=== PATIENT | female | born 1960 | race Caucasian/White ===

== ENCOUNTER 2025-03-03 15:16 | Outpatient (AMB) | payer MEDICARE, MEDICAID, SELFPAY ==
--- OUTSIDE RECORDS SUMMARY | 2025-02-28 14:42 | XMS_ITS | Encounter Summary ---
Author Organization [facility] Address [address] [place] [address] Care Team Providers Care Group Rooms Coordinator Name Role Phone James Negrete MD Primary Care Provider [phone] Reason for Visit * Reason Comments Hand Pain Red warm Encounter Details Date Type Department Care Team (Late st Contact Info) Description 02/28/2025 2:42 PM EST - 02/28/2025 5:04 PM EST Emergency [facility] Emergency [address] [place] [id number] Maciej Castro MD [address] [address] Cellulitis of left upper extremity (Primary Dx); Closed nondisplaced fracture of distal phalanx of left ring finger, initial encounter; Eczema of both hands Discharge Disposition: Home or Self Care Social History Tobacco Use Types Packs/Day Years Used Date Smoking Tobacco: Every Day Cigarettes Smokeless Tobacco: Never Tobacco Cessation:Ready to Q uit: Not Asked; Counseling Given: Not Answered Alcohol Use Standard Drinks/Week Comments No 0 (1 standard drink = 0.6 oz pur e alcohol) Housing Instability Answer Date Recorde d Are you worried that in the next 2 months you may not have stable housing? Patient declined 12/22/2024 Food Access & Nutrition Answer Date Rec orded Do you have access to a vari ety of food including fruits and vegetables? Patient declined 12/22/2024 Access to Healthcare Answer Date Record ed Within the last 3 months, angelito marrero many times did you visit the emergency department for your medical care? 0 12/22/2024 Health Literacy Answer Date Recorded How often do you need to hav e someone help you when you read instructions, pamphlets, or other written material from your doctor or pharmacy? Never 12/22/2024 Caregiver: How often do you need to have someone help you when you read instructions, pamphlets, or other written material from your doctor or pharmacy? Not on file 12/22/2024 Financial Risk Answer Date Recorded How hard is it for you to pa y for the very basics like food, housing, medical care, and air conditioning / heating? Patient declined 12/22/2024 Transportation Answer Date Recorded Has the lack of transportati on kept you from meetings, work, or from getting things needed for daily living? No Has the lack of transportati on kept you from medical appointments or from getting medications? No 12/22/2024 Social Isolation Answer Date Recorded How often do you feel lonely or isolated from th ose around you? Never 12/22/2024 Food Risk Answer Date Recorded Within the past 12 months we worried whether our food would run out before we got money to buy more. Patient declined 025 Within the past 12 months th e food we bought just didn't last and we didn't have money to get more. Patient declined 10/2024 Comments Unknown Sex and Gender Information Value Date Recorded Sex Assigned at Not on file Legal Sex Female 2:36 AM EST Gender Identity Not on file Sexual Orientation Not on file documented as of this encounter Last Filed Vital Signs Vital Sign Reading Time Taken Comments Blood Pressure 168/92 02/28/2025 2:36 PM EST Pulse 90 02/28/2025 2:36 PM EST Temperature 36.6 C (97.9 F) 02/28/2025 2:36 PM EST Respiratory Rate 20 02/28/2025 2:36 PM EST Oxygen Saturation 98% 02/28/2025 2:36 PM EST Inhaled Oxygen Concentration - - Weight 45.4 kg (100 lb) 02/28/2025 2:36 PM EST Height 149.9 cm (4' 11 ) 02/28/2025 2:36 PM EST Body Mass Index 20.2 02/28/2025 2:36 PM EST documented in this encounter Functional Status * Are you deaf or do you have serious difficulty hearing? Answer Date of Assessment Author No 10/12/2024 4:34 PM EDT Treva Mooney RN * Are you blind or do you have serious difficulty seeing, even when wearing glasses? Answer Date of Assessment Author No 10/12/2024 4:34 PM EDT Treva Mooney RN * Do you have serious difficulty walking or climbing stairs? Answer Date of Assessment Author No 10/12/2024 4:34 PM EDT Treva Mooney RN * Do you have serious difficulty dressing or bathing? Answer Date of Assessment Author No 10/12/2024 4:34 PM EDT Treva Mooney RN * Because of a physical, mental, or emotional condition, do you have serious difficulty doing errandsalone such as visiting the doctor? Answer Date of Assessment Author No 10/12/2024 4:34 PM EDT Treva Mooney RN * Calculated C-SSRS Risk Score (Lifetime/Recent) Answer Date of Assessment Author No Risk Indicated 02/28/2025 2:35 PM EST Gabrielle Monge RN * [place] Suicide Severity Rating Scale (Screener/Recent Self-Report) Question Answer Date of Assessment Author 1. Wish to be (Past 1 Month) No 02/28/2025 2:35 PM Antoine Fagan RN 2. Non-Specific Active Suici ilsa Thoughts (Past 1 Month) No 02/28/2025 2:35 PM Carlos Fagan RN 6. Suicidal Behavior (Lifetime) No 2:35 PM Gabrielle Fagan RN documented as of this encounter Mental Status * Because of a physical, mental, or emotional condition, do you have serious difficulty concentrating, remembering, or making decisions? (5 years old or older) Answer Entry Date Author No 10/12/2024 4:34 PM Treva Capps RN documented in this encounter Discharge Instructions * Discharge Instructions* Maciej Castro MD - 02/28/2025 4:37 PM EST Use an emollient type cream for your hand to improve the eczema * Attachments The following attachments cannot be sent through Care Everywhere. * Eczema (Beninese) * Splint or Immobilizer Use (Beninese) * Cellulitis (Beninese) documented in this encounter Medications at Time of Discharge albuterol HFA (Ventolin HFA) 90 mcg/actuation inhaler Inhale 2 puffs by mouth every 4 (four) hours if needed for wheezing or shortness of breath. 8 g 2 12/23/2024 6 carisoprodoL (SOMA) 350 mg tablet Take 1 tablet by mouth daily for 28 days. 09/14/2020 CHOLECALCIFEROL, VITAMIN D3, ORAL Take by mouth daily. doxycycline (VIBRAMYCIN) 100 mg capsule Take 1 capsule (100 mg total) by mouth 2 (two) times a day for 7 days. Take with at least 8 ounces (large glass) of water, do not lie down for 30 minutes after. Administer 2 hours before or after multivitamins, antacids, or other products containing polyvalent cations (i.e., calcium, iron, magnesium, selenium, zinc). 14 each 02/28/2025 5 fluticasone (VERAMYST) 27.5 mcg/actuation nasal spray Administer 1-2 sprays into each nostril 1 (one) time each day. 10 g 5 07/09/2024 6 loratadine (CLARITIN) 10 mg tablet TAKE 1 TABLET (10 MG TOTAL) BY MOUTH AT BEDTIME NEEDED FOR ALLERGIES. 30 tablet 4 09/08/2024 meloxicam (MOBIC) 15 mg tablet Take 1 Tab by mouth daily for 180 days. 05/18/2020 methadone (DOLOPHINE) 10 mg tablet Take 1 tablet (10 mg total) by mouth every 12 (twelve) hours. oxyCODONE (OxyCONTIN) 60 mg 12 hr abuse-deterrent tablet Take 1 tablet (60 mg total) by mouth 3 (three) times a day. Do not crush, chew, or split. oxyCODONE (ROXICODONE) 15 mg immediate release tablet Take 1 tablet by mouth every 6 hours as needed for Pain for up to 28 days. 09/14/2020 documented as of this encounter Ordered Prescriptions Prescription Sig Dispense Quantity Refills Last Filled Start Date End Date doxycycline (VIBRAMYCIN) 100 mg capsule Take 1 capsule (100 mg total) by mouth 2 (two) times a day for 7 days. Take with at least 8 ounces (large glass) of water, do not lie down for 30 minutes after. Administer 2 hours before or after multivitamins, antacids, or other products containing polyvalent cations (i.e., calcium, iron, magnesium, selenium, zinc). 14 each 02/28/2025 5 documented in this encounter Discharge Disposition Disposition Code Departure Means Destination Comment s Home or Self Care documented in this encounter Progress Notes * Gabrielle Shirley RN - 02/28/2025 2:33 PM EST Pt presents from home, reported left hand pian, onset yesterday- symptoms unchanged per pt. Increased pain and limited ROM secondary to pain. + Redness in triage. + Swelling. Pt recently on Augmentinfor URI. Alert and oriented x 3 * Ankita Jung RN - 02/28/2025 2:32 PM EST Pt reports started 2 days ago with pain in lt hand , yesterday started with increasing pain rednessand swelling . + chills * Maciej Castro MD - 02/28/2025 2:29 PM EST Emergency Medicine Note Patient Name: Radha Reynoso Initial Evaluation: 02/28/2025 : 1960 Patient's PCP: James Negrete MD Emergency Physician: Maciej Castro MD History of Present Illness Chief Complaint: Chief Complaint Patient presents with ??? Hand Pain Red warm HPI: 65 y.o. female has a past medical history of Adjustment disorder with anxiety (12/27/2019), Ankylosis of lumbar spine (12/27/2019), Back pain, Chronic low back pain without sciatica (11/30/2019),alf (current) use of opiate analgesic (12/27/2019), Opioid dependence ([facility] V24, [facility] V28) (12/27/2019), Post laminectomy syndrome (12/27/2019), Sepsis due to pneumonia ([facility] V24, [facility] V28) (11/30/2019), and Vitamin D deficiency (12/27/2019). Patient presents with left hand pain for several days history of severe eczema and also cellulitis was recently on a course of Augmentin for her lungs no she is finishing that but her hand is increasingly red. She has an allergy to Bactrim. She also notes she hit her left ring finger on a [employer] shopping cart 1 month ago. ROS: I have performed a ROS with the pertinent positives and negatives documented in the history ofpresent illness. Previous History Medical History[1] Surgical History[2] Social History[3] Family History[4] is allergic to codeine, latex, morphine, and sulfa (sulfonamide antibiotics). Medications Ordered Prior to Encounter[5] Physical Exam ED Triage Vitals [02/28/25 1436] Temp Heart Rate Resp BP 36.6 ??C (97.9 ??F) 90 20 (!) 168/92 SpO2 Temp Source Heart Rate Source Patient Position 98 % Oral Monitor Sitting BP Location FiO2 (%) Right arm -- General: appears chronically debilitated. Smells like smoke. HEENT: PERRL, EOMI, external ears and nose appear unremarkable, airway is patent Neck: Supple, full range of motion, no meningismus, no JVD Chest: Clear to auscultation; no evidence of respiratory distress Circulatory: The rate and rhythm , no murmurs rubs or gallops Abdomen: Non-distended, Non-Tender Extremities: Normal ROM, No edema, ranging all extremities without difficulty Erythema and swelling to left dorasl aspect of hand Flexion deformity to left ring finger, distal phalanx Skin: Warm and dry, well-perfused , no rashes Signs of severe eczema Neuro: Alert and oriented x 3. no motor or sensory deficits Psyche: Normal affect Results Labs Reviewed C-REACTIVE PROTEIN - Abnormal Result Value C-Reactive Protein 2.20 (*) SEDIMENTATION RATE - Abnormal Sed Rate 37 (*) CBC WITH AUTO DIFFERENTIAL - Abnormal WBC 13.4 (*) RBC 4.20 Hemoglobin 12.6 Hematocrit 39.0 MCV 92.6 MCH 29.9 MCHC 32.3 RDW 13.5 Platelets 488 (*) MPV 9.2 NRBC 0.0 NRBC Absolute 0.00 Neutrophils Relative 77.7 Lymphocytes Relative 16.1 Monocytes Relative 4.9 Eosinophils Relative 0.4 Basophils Relative 0.3 Immature Granulocytes Relative 0.6 Neutrophils Absolute 10.39 (*) Lymphocytes Absolute 2.15 Monocytes Absolute 0.65 Eosinophils Absolute 0.06 Basophils Absolute 0.04 Immature Granulocytes Absolute 0.08 (*) BASIC METABOLIC PANEL - Normal Sodium 138 Potassium 4.4 Chloride 101 CO2 28 Anion Gap 9 Glucose 92 BUN 11 Creatinine 0.80 eGFR 81 BUN/Creatinine Ratio 13.8 Calcium 9.0 CBC AND DIFFERENTIAL Narrative: The following orders were created for panel order CBC and differential. Procedure Abnormality Status --------- ------ CBC auto differential[[id number]] Abnormal Final result Please view results for these tests on the individual orders. Abnormal Labs Reviewed C-REACTIVE PROTEIN - Abnormal; Notable for the following components: Result Value C-Reactive Protein 2.20 (*) All other components within normal limits SEDIMENTATION RATE - Abnormal; Notable for the following components: Sed Rate 37 (*) All other components within normal limits CBC WITH AUTO DIFFERENTIAL - Abnormal; Notable for the following components: WBC 13.4 (*) Platelets 488 (*) Neutrophils Absolute 10.39 (*) Immature Granulocytes Absolute 0.08 (*) All other components within normal limits XR Hand 3+ Views Left Final Result Acute minimally displaced fracture of the 4th distal phalanx. -------- FINAL REPORT -------- Dictated By: Tim Valdez Dictated Date: 02/28/2025 15:12 ET Assigned Physician: Tim Valdez Reviewed and Electronically Signed By: Tim Valdez Signed Date: 02/28/2025 15:18 ET Workstation ID: [id number] Transcribed By: Self Edit Transcribed Date: 02/28/2025 15:12 ET I have discussed the incidental/abnormal imaging and/or lab abnormalities with the patient and haveinstructed them the need for further evaluation and workup with their primary care doctor. I have provided the patient with a paper copy of the abnormality. The laboratory results, imaging results and other diagnostic exam results were reviewed in the EMR. EKG Interpretation Critical Care Time None Medical Decision Making Medications doxycycline (MONODOX) capsule 100 mg (100 mg oral Given 02/28/25 1600) ED Course as of 03/03/251910 Mon Feb 28, 2025 1538 Noted fx of 4th distal phalanx, will splint, Hand appears mildy cellulitic , will rx doxy to cover for ca MRSA [JL] 1635 Will start on doxy likley superficial cellutlitis. No actual joint pain, doubt. Septic arthritis or gout Noted incidental fx. [JL] ED Course User Index [JL] Maciej Castro MD Clinical Impressions as of 03/03/251910 Cellulitis of left upper extremity - hand Closed nondisplaced fracture of distal phalanx of left ring finger, initial encounter Eczema of both hands Procedures Procedures Diagnosis No diagnosis found. Disposition Data Unavailable ED Prescriptions None Physician Attestation Maciej Castro MD 02/28/25 1636 [1] Past Medical History: Diagnosis Date ??? Adjustment disorder with anxiety 12/27/2019 DX:Adjustment disorder with anxiety ??? Ankylosis of lumbar spine 12/27/2019 DX:Ankylosis of lumbar spine ??? Back pain ??? Chronic low back pain without sciatica 11/30/2019 DX:Chronic low back pain without sciatica ??? 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 Opioid dependence (CMS/HCC V24, CMS/[facility] V28) 12/27/2019 DX:Opioid dependence (HCC) ??? Post laminectomy syndrome 12/27/2019 DX:Post laminectomy syndrome ??? Sepsis due to pneumonia (CMS/HCC V24, CMS/HCC V28) 11/30/2019 DX:Sepsis due to pneumonia (HCC) ??? Vitamin D deficiency 12/27/2019 DX:Vitamin D deficiency [2] Past Surgical History: Procedure Laterality Date ??? BACK SURGERY PROCEDURE: HISTORICAL BACK SURGERY; COMMENT: x3 back surgeries ??? OVARIAN CYST REMOVAL PROCEDURE: MD OVARIAN CYSTECTOMY UNI/BI ??? TONSILLECTOMY PROCEDURE: HISTORICAL TONSILLECTOMY [3] Social History Tobacco Use ??? Smoking status: Every Day Types: Cigarettes ??? Smokeless tobacco: Never Substance Use Topics ??? Alcohol use: No ??? Drug use: No [4] Family History Problem Relation Name Age of Onset ??? Hyperthyroidism Aunt mom's sis [5] No current facility-administered medications on file prior to encounter. Current Outpatient Medications on File Prior to Encounter Medication Sig Dispense Refill ??? albuterol HFA (Ventolin HFA) 90 mcg/actuation inhaler Inhale 2 puffs by mouth every 4 (four) hours if needed for wheezing or shortness of breath. 8 g 2 ??? carisoprodoL (SOMA) 350 mg tablet Take 1 tablet by mouth daily for 28 days. ??? CHOLECALCIFEROL, VITAMIN D3, ORAL Take by mouth daily. ??? fluticasone (VERAMYST) 27.5 mcg/actuation nasal spray Administer 1-2 sprays into each nostril 1(one) time each day. 10 g 5 ??? loratadine (CLARITIN) 10 mg tablet TAKE 1 TABLET (10 MG TOTAL) BY MOUTH AT BEDTIME NEEDED FOR ALLERGIES. 30 tablet 4 ??? meloxicam (MOBIC) 15 mg tablet Take 1 Tab by mouth daily for 180 days. ??? methadone (DOLOPHINE) 10 mg tablet Take 1 tablet (10 mg total) by mouth every 12 (twelve) hours. ??? oxyCODONE (OxyCONTIN) 60 mg 12 hr abuse-deterrent tablet Take 1 tablet (60 mg total) by mouth 3(three) times a day. Do not crush, chew, or split. ??? oxyCODONE (ROXICODONE) 15 mg immediate release tablet Take 1 tablet by mouth every 6 hours as needed for Pain for up to 28 days. Maciej Castro MD 03/03/251910 documented in this encounter Plan of Treatment Not on file documented as of this encounter Procedures Procedure Name Priority Date/Time Associated Diagnosis Comments XR HAND 3+ VIEWS LEFT STAT 02/28/2025 3:10 PM EST CBC WITH AUTO DIFFERENTIAL STAT 02/28/2025 2:40 PM EST SEDIMENTATION RATE STAT 02/28/2025 2: 40 PM EST CBC AND DIFFERENTIAL STAT 02/28/2025 2:40 PM EST C-REACTIVE PROTEIN STAT 02/28/2025 2: 40 PM EST BASIC METABOLIC PANEL STAT 02/28/2025 2:40 PM EST documented in this encounter Results * XR Hand 3+ Views Left (02/28/2025 3:10 PM EST) Anatomical Region Laterality Modality Upper Extremities, Hand Left Radiogra phic Imaging 02/28/2025 3:12 PM EST Impressions 02/28/2025 3:18 PM EST Acute minimally displaced fracture of the 4th distal phalanx. -------- FINAL REPORT -------- Dictated By: Tim Valdez Dictated Date: 02/28/2025 15:12 ET Assigned Physician: Tim Valdez Reviewed and Electronically Signed By: Tim Valdez Signed Date: 02/28/2025 15:18 ET Workstation ID: [id number] Transcribed By: Self Edit Transcribed Date: 02/28/2025 15:12 ET Narrative 02/28/2025 3:18 PM EST PROCEDURE: Radiographs of the left hand. HISTORY: pain. COMPARISON: None. FINDINGS: 3 views of the left hand. Bones appear mildly demineralized. There is an acute minimally displaced fracture involving the ulnar base of the 4th distal phalanx. Calcifications of the triangular fibrocartilage suggestive of chondrocalcinosis. Dystrophic soft tissue calcifications along the volar aspect of the proximal carpal row. Procedure Note Tim Valdez MD - 02/28/2025 PROCEDURE: Radiographs of the left hand. HISTORY: pain. COMPARISON: None. FINDINGS: 3 views of the left hand. Bones appear mildly demineralized. There is anacute minimally displaced fracture involving the ulnar base of the 4thdistal phalanx. Calcifications of the triangular fibrocartilage suggestive ofchondrocalcinosis. Dystrophic soft tissue calcifications along the volaraspect of the proximal carpal row. IMPRESSION: Acute minimally displaced fracture of the 4th distal phalanx. -------- FINAL REPORT -------- Dictated By: Tim Valdez Dictated Date: 02/28/2025 15:12 ET Assigned Physician: Tim Valdez Reviewed and Electronically Signed By: Tim Valdez Signed Date: 02/28/2025 15:18 ET Workstation ID: [id number] Transcribed By: Self Edit Transcribed Date: 02/28/2025 15:12 ET us Maciej Castro MD IMG XR PROCEDURES Final Res ult * (ABNORMAL) CBC auto differential (02/28/2025 2:40 PM EST) WBC 13.4(H) 4.8 - 10.8 K/mcL LAB HEMETOLOGY METHOD 02/28/2025 3:22 PM [facility] RBC 4.20 3.80 - 4.80 M/mcL LAB HEMETOLOGY METHOD 02/28/2025 3:22 PM [facility] Hemoglobin 12.6 11.5 - 16.0 g/dL LAB HEMETOLOGY METHOD 02/28/2025 3:22 PM [facility] Hematocrit 39.0 35.0 - 47.0 % LAB HEMETOLOGY METHOD 02/28/2025 3:22 PM [facility] MCV 92.6 79.0 - 98.0 FL LAB HEMETOLOGY METHOD 02/28/2025 3:22 PM [facility] MCH 29.9 27.0 - 32.0 pcg LAB HEMETOLOGY METHOD 02/28/2025 3:22 PM [facility] MCHC 32.3 32.0 - 37.0 g/dL LAB HEMETOLOGY METHOD 02/28/2025 3:22 PM [facility] RDW 13.5 11.0 - 15.0 % LAB HEMETOLOGY METHOD 02/28/2025 3:22 PM [facility] Platelets 488(H) 130 - 400 K/mcL LAB HEMETOLOGY METHOD 02/28/2025 3:22 PM [facility] MPV 9.2 7.0 - 11.0 FL LAB HEMETOLOGY METHOD 02/28/2025 3:22 PM [facility] NRBC 0.0 <1.0 % LAB HEMETOLOGY METHOD 02/28/2025 3:22 PM [facility] NRBC Absolute 0.00 <0.10 K/mcL LAB HEMETOLOGY METHOD 02/28/2025 3:22 PM [facility] Neutrophils Relative 77.7 % LAB HEMETOLOGY METHOD 02/28/2025 3:22 PM [facility] Lymphocytes Relative 16.1 % LAB HEMETOLOGY METHOD 02/28/2025 3:22 PM [facility] Monocytes Relative 4.9 % LAB HEMETOLOGY METHOD 02/28/2025 3:22 PM [facility] Eosinophils Relative 0.4 % LAB HEMETOLOGY METHOD 02/28/2025 3:22 PM [facility] Basophils Relative 0.3 % LAB HEMETOLOGY METHOD 02/28/2025 3:22 PM [facility] Immature Granulocytes Relative 0.6 % LAB HEMETOLOGY METHOD 02/28/2025 3:22 PM [facility] Neutrophils Absolute 10.39(H) 1.50 - 7.00 K/mcL LAB HEMETOLOGY METHOD 02/28/2025 3:22 PM [facility] Lymphocytes Absolute 2.15 1.00 - 5.00 K/mcL LAB HEMETOLOGY METHOD 02/28/2025 3:22 PM [facility] Monocytes Absolute 0.65 0.20 - 1.00 K/mcL LAB HEMETOLOGY METHOD 02/28/2025 3:22 PM EST [facility] Eosinophils Absolute 0.06 0.00 - 0.50 K/[facility] LAB HEMETOLOGY METHOD 02/28/2025 3:22 PM EST [facility] Basophils Absolute 0.04 0.00 - 0.20 K/[facility] LAB HEMETOLOGY METHOD 02/28/2025 3:22 PM EST [facility] Immature Granulocytes Absolute 0.08(H) 0.00 - 0.03 K/mcL LAB HEMETOLOGY METHOD 02/28/2025 3:22 PM EST [facility] Blood Venous blood specimen / Unknown Venipuncture / Unknown 02/28/2025 2:40 PM EST 02/28/2025 3:18 PM EST Maciej Castro MD LAB BLOOD ORDERABLES Final Result [facility] [address] [place] [address], [place] [phone] * (ABNORMAL) Sedimentation rate, automated (02/28/2025 2:40 PM EST) Sed Rate 37(H) 0 - 30 mm/hr LAB HEMETOLOGY METHOD 02/28/2025 3:30 PM EST [facility] Blood Venous blood specimen / Unknown Venipuncture / Unknown 02/28/2025 2:40 PM EST 02/28/2025 3:18 PM EST Maciej Castro MD LAB BLOOD ORDERABLES Final Result [facility] [address] [place] [address], [place] [phone] * (ABNORMAL) C-reactive protein (02/28/2025 2:40 PM EST) [facility] C-Reactive Protein 2.20(H) <=0.50 mg/dL 02/28/2025 4:11 PM [facility] Blood Venous blood specimen / Unknown Venipuncture / Unknown 02/28/2025 2:40 PM EST 02/28/2025 3:18 PM EST us Maciej Castro MD LAB BLOOD ORDERABLES Final Result [facility] [address] [place] [address], * Basic metabolic panel (02/28/2025 2:40 PM EST) [facility] Sodium 138 133 - 145 mmol/L 02/28/2025 4:09 PM [facility] Potassium 4.4 3.5 - 5.5 mmol/L 02/28/2025 4:09 PM [facility] Chloride 101 96 - 110 mmol/L 02/28/2025 4:09 PM [facility] CO2 28 21 - 32 mmol/L 02/28/2025 4:09 PM [facility] Anion Gap 9 3 - 11 02/28/2025 4:09 PM [facility] Glucose 92 70 - 100 mg/dL 02/28/2025 4:09 PM [facility] BUN 11 5 - 25 mg/dL 02/28/2025 4:09 PM [facility] Creatinine 0.80 0.50 - 1.10 mg/dL 02/28/2025 4:09 PM [facility] eGFR 81 >=60 mL/min/1. 73m2 02/28/2025 4:09 PM [facility] Comment:Calculation based on the Chronic Kidney Disease Epidemiology Collaboration (CKD-EPI) equation refit without adjustment for race. BUN/Creatinine Ratio 13.8 02/28/2025 4:09 PM EST [facility] Calcium 9.0 8.5 - 10.5 mg/dL 02/28/2025 4:09 PM EST [facility] Blood Venous blood specimen / Unknown Venipuncture / Unknown 02/28/2025 2:40 PM EST 02/28/2025 3:18 PM EST us Maciej Castro MD LAB BLOOD ORDERABLES Final Result [facility] [address] [place] [address], documented in this encounter Visit Diagnoses Diagnosis Cellulitis of left upper extremity- Primary Closed nondisplaced fracture of distal phalanx of left ring finger, initial encounter Eczema of both hands documented in this encounter Administered Medications Inactive Administered Medications - up to 3 most recent administrations Medication Order MAR Action Action Date Dose Rate Site doxycycline (MONODOX) capsule 100 mg 100 mg, oral, Once, On Fri02/28/25 at 1550, For 1 dose, Take with at least 8 ounces (large glass) of water, do not lie down for 30 minutes after. Administer 2 hours before or after multivitamins, antacids, or other products containing polyvalent cations (i.e., calcium, iron, magnesium, selenium, zinc)., Indication: Skin/Soft Tissue Given 02/28/2025 4:00 PM EST 100 mg documented in this encounter Active and Recently Administered Medications Times are shown in EST. Scheduled Medication Order 02/26/2025 02/27/2025 02/28/2025 doxycycline (MONODOX) capsule 100 mg (COMPLETED) 100 mg, oral, Once, On Fri02/28/25 at 1550, For 1 dose, Take with at least 8 ounces (large glass) of water, do not lie down for 30 minutes after. Administer 2 hours before or after multivitamins, antacids, or other products containing polyvalent cations (i.e., calcium, iron, magnesium, selenium, zinc)., Indication: Skin/Soft Tissue 1600 (Given - Provid er: Farrah Gore RN) documented in this encounter Orders Medications Ordered That Navjot ht Not Have Been Administered Count Last Ordered Date First Ordered Date doxycycline (MONODOX) capsule 100 mg 1 02/14 documented in this encounter Additional Health Concerns Assessment Noted Time PHQ-9 Depression Total Score: 0 12/23/19 25 9:41 AM EDT documented as of this encounter Care Teams Group Rooms Coordinator Relationship Specialty Start Date End Date James Negrete MD [address] [place] [address] PCP - General Internal Medicine 05/25/21 documented as of this encounter
--- NOTE | 2025-03-03 15:20 | A.PHYSOV_ITS ---
Vital Signs 03/03/25 15:22 Height 4 ft 11 in Weight 100 lb BMI 20.2 Intake Visit Reasons: 3M FUV Intake Note: Patient is a 65 year old female in office today for a 3 month medication management visit. 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 She has chronic pain in her low back and both knees secondary to an old work injury. She has a history of being on very high doses of narcotics and her current regimen includes OxyContin 60 mg three times a day, immediate-release oxycodone 15 mg four times a day, methadone 10 mg twice a day, and carisoprodol 350 mg. She also takes meloxicam and lidocaine patches. In recent weeks, the patient experienced an upper respiratory infection resembli ng bronchitis or pneumonia around [facility], for which she took antibiotics. Subsequently, she developed cellulitis in her left wrist, which became red, hot, and swollen, prompting a visit to the emergency room where she was prescribed doxycycline. The cellulitis is thought to have originated from a small cut on her dry skin. She reports that her labs were abnormal due to the infection, with elevated white blood cells and platelets. 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 She has recently ex perienced a recurrence of symptoms, including a butterfly rash over the past six weeks. Additional recent medical issues include a finger fracture sustained a few weeks ago, and she notes her bunions on the right foot are unchanged while she awaits orthotic shoes. Pain Description - Location: The patient reports chronic pain in her low back and both knees. - Onset: The chronic pain is related to an old work injury from many years ago. - Acute Pain: The patient reports acute, severe pain in her left wrist due to cellulitis, which she describes as absolutely killing me. - Associated Symptoms: The left wrist with cellulitis was red, hot, and swollen. Results - Labs: Recent laboratory results from her ER visit showed an elevated white blood cell count and elevated platelets. - Historical Labs: Past ROLANDA testing was negative. - Imaging: An X-ray confirmed a finger fracture. [facility], [facility] Medical History (Updated 03/03/25 @ 16:05 by Valdez Santos DO) Sacroiliac dysfunction Chronic pain syndrome Post laminectomy syndrome Muscle spasm Surgical History History of tonsillectomy History of History of back surgery Social History Alcohol intake: current Alcohol intake frequency: holidays/special occasions only Patient Tobacco Use Status: Current everyday Tobacco user Current occupational status: retired Review of Systems Narrative Review of Systems - Constitutional: Denies fever or chills. - Integumentary: Reports dry skin, which led to a small cut. - She also reports getting a recurrent butterfly rash. - Respiratory: Reports a recent history of an upper respiratory infection, described as a bronchitis/pneumonia type illness. Physical Exam Exam Exam: Physical Exam - By patient report, her left wrist was red, hot, and swollen. She ambulates without antalgia. Lumbar range of motion was restricted in all planes. Cervical range of motion was restricted. Spurling maneuver was negative. Lhermitte's sign was negative. Heel walk and toe walk were not tested. She ambulates with a single-point cane. She demonstrated no upper motor neuron signs. Vital Signs: BMI result Body Mass Index 20.2 Assessment & Plan Assessment & Plan (1) Post laminectomy syndrome: Code(s): M96.1 - Postlaminectomy syndrome, not elsewhere classified Category: Medical (2) Muscle spasm: Code(s): M62.838 - Other muscle spasm Category: Medical (3) Chronic pain syndrome: Code(s): G89.4 - Chronic pain syndrome Category: Medical (4) Sacroiliac dysfunction: Code(s): M53.3 - Sacrococcygeal disorders, not elsewhere classified Category: Medical Plan Pain Management - Affect: The patient is significantly impacted by her pain, noting that the acute pain from cellulitis has made her realize how much she uses her left hand. - Analgesia: The patient is currently managed on a high-dose opioid regimen including OxyContin 60 mg three times a day, oxycodone immediate release 15 mg four times a day for breakthrough pain, and methadone 10 mg twice a day. - She also takes carisoprodol 350 mg, meloxicam, and uses lidocaine patches. - She requested a course of prednisone for pain but was denied due to active cellulitis. - Adverse Effects: No side effects from medications were discussed. - Activities of Daily Living: The patient's pain significantly impacts her daily life, as evidenced by a fall history and her inability to tolerate a splint on her fractured finger due to the pain of her cellulitis. 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 - Aberrant Drug Related Behaviors: The patient has been prescribed naloxone for safety. - A previous primary care provider perceived her as a drug addict due to her medication regimen, although she denies requesting pain medications from him. - She requested her refill to be dated one day early, March 24 instead of March 25, to avoid the difficulty of picking up medications on the morning she runs out. Plan Patient was informed and verbally consented to the use of an ambient scribe for clinic note documentation during this visit. 1. Chronic Pain The patient will continue her current pain management regimen, which includes OxyContin 60 mg TID, oxycodone immediate release 15 mg QID, methadone 10 mg BID, and carisoprodol 350 mg. Prescriptions will be sent to the pharmacy for a March 24 fill date, as requested, to avoid a lapse in therapy. She will continue to use meloxicam and lidocaine patches as needed. She has been prescribed naloxone for safety. No new pain contract is required at this time. 2. Cellulitis Of Left Upper Extremity The patient is currently on doxycycline for cellulitis of her left wrist, as prescribed by the emergency room. Her request for prednisone was declined due to the active infection, as it can delay healing and worsen the infection. The patient was advised to call and request prednisone if needed after the cellulitis has completely resolved. 3. Lupus-Like Syndrome Given the history of a lupus-like syndrome and recent recurrence of a butterfly rash, the patient has been advised to see a sheetfed press operator. A lab slip will be provided for an ROLANDA test, which she can use if the rash appears. 4. Fracture Of Finger The patient reports a finger fracture, which she is managing by tim linares. Advised her that she can follow up on it, but major interventions are unlikely as long as it is straight. 5. Primary Care Coordination The patient is seeking a new primary care physician. She was provided with information about the [facility]'s [facility] Discussion Notes I discussed the continuation of the patient's current chronic pain medication regimen and agreed to her request to fill her prescriptions on March 24 to avoid a gap in therapy. I explained to her that a course of prednisone cannot be prescribed at this time due to her active cellulitis, as steroids could delay healing and worsen the infection. I advised her to call the office to request it once the infection has completely resolved. We talked about her recurring lupus-like symptoms, and I will provide her with a lab slip for an ROLANDA test. I also provided her with names of potential new primary care providers, as she is currently dissatisfied with her care. Information on how to sign up for the patient portal will be provided for easier communication. I confirmed that a new pain treatment contract is not necessary at this time, and we scheduled a follow-up visit in three months. Patient Instructions - Continue your current pain medications as prescribed. - Your refills will be sent to be ready for pickup on March 24. - Continue taking the doxycycline antibiotic for your wrist infection (cellulitis) until you finish the course. - Do not take steroids like prednisone while you have an active infection, as it can make it worse and delay healing. - Once the infection is completely gone, if you are still in significant pain, you may call our office to request it. - If you develop the facial rash again, you can use the lab slip we are providing to get your ROLANDA blood test done. - For your broken finger, you can continue to tape it to the next finger for support. - You can contact the [facility] to find a new primary care doctor - The office staff will provide you with information on how to sign up for the patient portal, which will allow you to send messages directly to our team. - Please follow up in our office in three months. Medications: Changed From carisoprodol 350 mg PO BEDTIME 28 days 28 tabs 0RF Muscle spasm M62.838 - Other muscle spasm To carisoprodol Fill date 03/24/2024 350 mg PO BEDTIME 28 tabs 0RF Muscle spasm 28 days M62.838 - Other muscle spasm Refilled oxycodone Partial fill upon request 15 mg PO QID PRN 112 tabs 0RF pain 28 days G89.4 - Chronic pain syndrome, M96.1 - Postlaminectomy syndrome, not elsewhere classified methadone Partial fill upon request 10 mg PO BID 56 tabs 0RF pain 28 days G89.4 - Chronic pain syndrome, M96.1 - Postlaminectomy syndrome, not elsewhere classified oxycodone ER (OxyContin) Partial fill upon request 60 mg PO TID 84 tabs 0RF Chronic pain 28 days G89.4 - Chronic pain syndrome, M96.1 - Postlaminectomy syndrome, not elsewhere classified Coding Level of Care Code Est Pt Level 4 (46706) Add On Problem Visit Only Diagnoses Post laminectomy syndrome M96.1 Muscle spasm M62.838 Chronic pain syndrome G89.4 Sacroiliac dysfunction M53.3
[2025-03-03 15:22] VITALS: BMI 20.2
--- OUTSIDE RECORDS SUMMARY | 2025-03-03 19:14 | XMS_ITS | Clinical Summary ---
Author Organization [facility] [address] [place] [address] [address] [place] [address] Phone Care Team Providers Care Corporate Investigator Name Role Phone James Negrete MD Primary Care Provider Allergies Active Allergy Reactions Criticality Noted Date Comments Codeine Itching,Rash 12/09/2019 Latex 10/12/2024 Morphine 12/09/2019 Unable to urinate per pt Sulfa (Sulfonamide Antibiotics) Itching,Rash 12/09/2019 Medications CHOLECALCIFEROL , VITAMIN D3, ORAL Take by mouth daily. Active meloxicam (MOBIC) 15 mg tablet Take 1 Tab by mouth daily for 180 days. 1 Active carisoprodoL (SOMA) 350 mg tablet Take 1 tablet by mouth daily for 28 days. 1 Active oxyCODONE (ROXICODONE) 15 mg immediate release tablet Take 1 tablet by mouth every 6 hours as needed for Pain for up to 28 days. 1 Active oxyCODONE (OxyCONTIN) 60 mg 12 hr abuse-deterrent tablet Take 1 tablet (60 mg total) by mouth 3 (three) times a day. Do not crush, chew, or split. Active methadone (DOLOPHINE) 10 mg tablet Take 1 tablet (10 mg total) by mouth every 12 (twelve) hours. Active fluticasone (VERAMYST) 27.5 mcg/actuation nasal spray Administer 1-2 sprays into each nostril 1 (one) time each day. 10 g 5 5 07/10/19 26 Active loratadine (CLARITIN) 10 mg tablet TAKE 1 TABLET (10 MG TOTAL) BY MOUTH AT BEDTIME NEEDED FOR ALLERGIES. 30 tablet 4 5 Active albuterol HFA (Ventolin HFA) 90 mcg/actuation inhaler Inhale 2 puffs by mouth every 4 (four) hours if needed for wheezing or shortness of breath. 8 g 2 5 12/24/19 26 Active doxycycline (VIBRAMYCIN) 100 mg capsule Take 1 capsule (100 mg total) by mouth 2 (two) times a day for 7 days. Take with at least 8 ounces (large glass) of water, do not lie down for 30 minutes after. Administer 2 hours before or after multivitamins, antacids, or other products containing polyvalent cations (i.e., calcium, iron, magnesium, selenium, zinc). 14 each 5 03/07/20 Active Active Problems Problem Noted Date Diagnosed Date Allergic rhinitis 12/31/2019 Overview (03/16/2024): Takes claritin prn, seasonal allergies Adjustment disorder with anxiety 12/27/2019 Ankylosis of lumbar spine 12/27/2019 Opioid dependence 12/27/2019 Post laminectomy syndrome 12/27/2019 Vitamin D deficiency 12/27/2019 Chronic bilateral low back pain with bilateral s ciatica 11/30/2019 Tobacco use disorder 11/30/2019 Encounters Date Type Department Care Team Description 02/28/2025 2:42 PM EST - 02/28/2025 5:[address] [facility] [address] [place] [address] Maciej Castro MD Cellulitis of left upper extremity (Primary Dx); Closed nondisplaced fracture of distal phalanx of left ring finger, initial encounter; Eczema of both hands Discharge Disposition: Home or Self Care 12/22/2024 Nurse Triage Adult Medicine [address] [id number] Koffi Anderson PA from Last 3 Months Immunizations Immunization Administration Dates Next Due Influenza Quadravalent, MDCK , 0.5ml, preservative free (Flucelvax) 6mo and older 12/31/2019 Pneumococcal polysaccharide 23 valent (Pneumovax 23) 2yo and older 12/31/2019 Surgical History Surgery Date Site/Laterality Comments BACK SURGERY PROCEDURE: HISTORICAL BACK SURGERY; COMMENT: x3 back surgeries TONSILLECTOMY PROCEDURE: HISTORICAL TONSILLECTOMY OVARIAN CYST REMOVAL PROCEDURE: [place] OVARIAN CYSTECTOMY UNI/BI Medical History Medical History Date Comments Sepsis due to pneumonia ([facility] V24, [facility] V28) 11/30/2019 DX:Sepsis due to pneumonia ( [facility]) Chronic low back pain withou t sciatica 11/30/2019 DX:Chronic low back pain wit hout sciatica Ankylosis of lumbar spine 12/27/2019 DX:Ank ylosis of lumbar spine Adjustment disorder with anxiety 12/27/2019 DX:Adjustment disorder with anxiety senior care (current) use of o piate analgesic 12/27/2019 DX:senior care (current) use o f opiate analgesic Opioid dependence ([facility] V 24, [facility] V28) 12/27/2019 DX:Opioid dependence ([facility]) Vitamin D deficiency 12/27/2019 DX:Vitamin D deficiency Post laminectomy syndrome 12/27/2019 DX:Pos t laminectomy syndrome Back pain Family History Medical History Relation Name Comments Hyperthyroidism Aunt mom's sis Relation Name Status Comments Aunt mom's sis Alive Social History Tobacco Use Types Packs/Day Years [...] on file Sexual Orientation Not on file Last Filed Vital Signs Vital Sign Reading [...] Mass Index 20.2 02/28/2025 2:36 PM EST Plan of Treatment Health Maintenance Due Date Last Done Comments Breast Cancer Screening 1960 Colorectal Cancer Screening: Colonoscopy 1960 Drug Screen 1959 Non-Opioid Controlled Substa nce Agreement 1959 DTaP,Tdap,and Td Vaccines (1 - Tdap) 1978 Hepatitis A Vaccines (1 of 2 - Risk 2-dose series) 1978 Zoster Vaccines (1 of 2) 2009 Pneumococcal Vaccine: 50+ Ye ars (2 of 2 - PCV) 12/30/2020 12/31/2019 Cholesterol Screening (Lipid Panel) 02/17/2022 Hepatitis C Screening 02/17/2022 Medicare Annual Wellness Visit 02/17/2022 Osteoporosis Screening (Bone Density Screening) 02/17/2022 Falls Risk Assessment 02/12/2024 COVID-19 Vaccine (1 - 2024-2 6 season) 2024 Influenza Vaccine (#1) 2024 12/31/2019 Social Influencers of Health Screening 12/22/2025 12/22/2024 RSV Immunization Adult Patie nts (1 - 1-dose 75+ series) 2034 Depression Screening Completed 12/23/2024 HIB Vaccines Aged Out No longer eligi ble based on patient's age to complete this topic HPV Vaccines Aged Out No longer eligi ble based on patient's age to complete this topic Hepatitis B Vaccines Aged Out No long er eligible based on patient's age to complete this topic IPV Vaccines Aged Out No longer eligi ble based on patient's age to complete this topic MMR Vaccines Aged Out No longer eligi ble based on patient's age to complete this topic Meningococcal ACWY Vaccine Aged Out N o longer eligible based on patient's age to complete this topic Meningococcal B Vaccine Aged Out No l onger eligible based on patient's age to complete this topic RSV Immunization Patients Un indigo 20 months Aged Out No longer eligible b ased on patient's age to complete this topic Varicella Vaccines Aged Out No longer eligible based on patient's age to complete this topic Procedures Procedure Name Priority Date/Time Associated Diagnosis Comments XR HAND 3+ VIEWS LEFT STAT 02/28/2025 3:10 PM EST CBC WITH AUTO DIFFERENTIAL STAT 02/28/2025 2:40 PM EST SEDIMENTATION RATE STAT 02/28/2025 2: 40 PM EST C-REACTIVE PROTEIN STAT 02/28/2025 2: 40 PM EST BASIC METABOLIC PANEL STAT 02/28/2025 2:40 PM EST CBC AND DIFFERENTIAL STAT 02/28/2025 2:40 PM EST from Last 3 Months Results * XR Hand 3+ Views Left [...] Signed Date: 02/28/2025 15:18 ET Workstation ID: [id number] Transcribed By: Self Edit Transcribed Date: 02/28/2025 [...] Signed Date: 02/28/2025 15:18 ET Workstation ID: [id number] Transcribed By: Self Edit Transcribed Date: 02/28/2025 15:12 ET us Maciej Castro MD IMG XR PROCEDURES Final Res ult * (ABNORMAL) CBC auto differential (02/28/2025 2:40 PM EST) WBC 13.4(H) 4.8 - 10.8 K/mcL LAB HEMETOLOGY METHOD 02/28/2025 3:22 PM [facility] RBC 4.20 3.80 - 4.80 M/mcL LAB HEMETOLOGY METHOD 02/28/2025 3:22 PM [facility] Hemoglobin 12.6 11.5 - 16.0 g/dL LAB HEMETOLOGY METHOD 02/28/2025 3:22 PM [facility] Hematocrit 39.0 35.0 - 47.0 % LAB HEMETOLOGY METHOD 02/28/2025 3:22 PM [facility] MCV 92.6 79.0 - 98.0 FL LAB HEMETOLOGY METHOD 02/28/2025 3:22 PM [facility] MCH 29.9 27.0 - 32.0 pcg LAB HEMETOLOGY METHOD 02/28/2025 3:22 PM [facility] MCHC 32.3 32.0 - 37.0 g/dL LAB HEMETOLOGY METHOD 02/28/2025 3:22 PM [facility] RDW 13.5 11.0 - 15.0 % LAB HEMETOLOGY METHOD 02/28/2025 3:22 PM [facility] Platelets 488(H) 130 - 400 K/mcL LAB HEMETOLOGY METHOD 02/28/2025 3:22 PM [facility] MPV 9.2 7.0 - 11.0 FL LAB HEMETOLOGY METHOD 02/28/2025 3:22 PM [facility] NRBC 0.0 <1.0 % LAB HEMETOLOGY METHOD 02/28/2025 3:22 PM [facility] NRBC Absolute 0.00 <0.10 K/mcL LAB HEMETOLOGY METHOD 02/28/2025 3:22 PM [facility] Neutrophils Relative 77.7 % LAB HEMETOLOGY METHOD 02/28/2025 3:22 PM [facility] Lymphocytes Relative 16.1 % LAB HEMETOLOGY METHOD 02/28/2025 3:22 PM [facility] Monocytes Relative 4.9 % LAB HEMETOLOGY METHOD 02/28/2025 3:22 PM [facility] Eosinophils Relative 0.4 % LAB HEMETOLOGY METHOD 02/28/2025 3:22 PM [facility] Basophils Relative 0.3 % LAB HEMETOLOGY METHOD 02/28/2025 3:22 PM [facility] Immature Granulocytes Relative 0.6 % LAB HEMETOLOGY METHOD 02/28/2025 3:22 PM [facility] Neutrophils Absolute 10.39(H) 1.50 - 7.00 K/mcL LAB HEMETOLOGY METHOD 02/28/2025 3:22 PM [facility] Lymphocytes Absolute 2.15 1.00 - 5.00 K/mcL LAB HEMETOLOGY METHOD 02/28/2025 3:22 PM [facility] Monocytes Absolute 0.65 0.20 - 1.00 K/mcL LAB HEMETOLOGY METHOD 02/28/2025 3:22 PM [facility] Eosinophils Absolute 0.06 0.00 - 0.50 K/mcL LAB HEMETOLOGY METHOD 02/28/2025 3:22 PM EST [facility] Basophils Absolute 0.04 0.00 - 0.20 K/[facility] LAB HEMETOLOGY METHOD 02/28/2025 3:22 PM EST [facility] Immature Granulocytes Absolute 0.08(H) 0.00 - 0.03 K/[facility] LAB HEMETOLOGY METHOD 02/28/2025 3:22 PM EST [facility] Blood Venous blood specimen / Unknown Venipuncture / Unknown 02/28/2025 2:40 PM EST 02/28/2025 3:18 PM EST Maciej Castro MD LAB BLOOD ORDERABLES Final Result Performing Organization Address [facility]/ZIP Co de Phone Number [facility] [address] [place] [address], [place] [phone] * (ABNORMAL) Sedimentation rate, automated (02/28/2025 2:40 PM EST) Sed Rate 37(H) 0 - 30 mm/hr LAB HEMETOLOGY METHOD 02/28/2025 3:30 PM EST [facility] Blood Venous blood specimen / Unknown Venipuncture / Unknown 02/28/2025 2:40 PM EST 02/28/2025 3:18 PM EST Maciej Castro MD LAB BLOOD ORDERABLES Final Result [facility] [address] [place] [address], [place] [phone] * (ABNORMAL) C-reactive protein (02/28/2025 2:40 PM EST) C-Reactive Protein 2.20(H) <=0.50 mg/dL 02/28/2025 4:11 PM EST [facility] Blood Venous blood specimen / Unknown Venipuncture / Unknown 02/28/2025 2:40 PM EST 02/28/2025 3:18 PM EST us Maciej Castro MD LAB BLOOD ORDERABLES Final Result [facility] [address] [place] [address], [place] [phone] * Basic metabolic panel (02/28/2025 2:40 PM EST) Sodium 138 133 - 145 mmol/L 02/28/2025 4:09 PM [facility] Potassium 4.4 3.5 - 5.5 mmol/L 02/28/2025 4:09 PM [facility] Chloride 101 96 - 110 mmol/L 02/28/2025 4:09 PM [facility] CO2 28 21 - 32 mmol/L 02/28/2025 4:09 PM [facility] Anion Gap 9 3 - 11 02/28/2025 4:09 PM [facility] Glucose 92 70 - 100 mg/dL 02/28/2025 4:09 PM [facility] BUN 11 5 - 25 mg/dL 02/28/2025 4:09 PM [facility] Creatinine 0.80 0.50 - 1.10 mg/dL 02/28/2025 4:09 PM [facility] eGFR 81 >=60 mL/min/1. 73m2 02/28/2025 4:09 PM [facility] Comment:Calculation based on the Chronic Kidney Disease Epidemiology Collaboration (CKD-EPI) equation refit without adjustment for race. BUN/Creatinine Ratio 13.8 02/28/2025 4:09 PM [facility] Calcium 9.0 8.5 - 10.5 mg/dL 02/28/2025 4:09 PM [facility] Blood Venous blood specimen / Unknown Venipuncture / Unknown 02/28/2025 2:40 PM EST 02/28/2025 3:18 PM EST Maciej Castro MD LAB BLOOD ORDERABLES Final Result [facility] [address] [place] [address], from Last 3 Months Insurance MEDICARE MEDICAID - [place] Care Teams Corporate Investigator Relationship Specialty Start Date End Date aJmes Negrete MD [address] [place] [address] PCP - General Internal Medicine 05/25/21
--- OUTSIDE RECORDS SUMMARY | 2025-03-03 19:14 | XMS_ITS | Patient Health Record ---
Author Organization [facility] Address [address] [place] [id number] Care Team Providers Care Grain Elevator Clerk Name Role Phone Howie Guerrero MD Primary Care Provider Devi villanueva Allergies Allergen (clinical drug ingredient) Drug/Non Drug Allergy documented on EMR Reaction Allergy Type Onset Date Status Codeine Phosphate Unknown Drug Allergy Active codeine Codeine Sulfate Unknown Drug Allergy A ctive Reason For Referral No Information Medications Medication SIG (Take, Route, Frequency, Duration) Notes Start Date End Date Status OxyCONTIN 60 MG Tablet ER 12 Hour Abuse-Deterrent 1 tablet Orally tid used to be 80, 60 is not enough Active oxyCODONE HCl 30 MG Tablet 1 tablet as needed Orally qid Active Soma 350 MG Tablet 1 tablet as needed Orally qd Active Lidoderm 5 % Patch 1-2 Externally qd Active Tylenol 325 MG Tablet 1 tablet as needed Orally every 4 hrs Active Meloxicam 7.5 MG Tablet 1 tablet Orally Once a day Active Claritin as directed Active Social History Tobacco Use: Social History Observation Description Date Details (start date - stop date) Current Smoker NA - NA Social History Tobacco Use: Social Info Question Answer Notes Tobacco Use/Smoking Are you a current smoker How often do you smoke cigarettes? every day How many cigarettes a day do you smoke? 5 or less How soon after you wake up do you smoke your first cigarette? after 60 minutes Are you interested in quitting? Ready to quit When did you start smoking? 1980 Section Notes: uses nicotine patch to help quit Plan Of Treatment No Information Insurance Providers Payer Name Payer Address Payer Phone Subscriber Number Group Number Insured Name Patient Relationship to Insured Coverage Start [place] [phone] [id number] KELLEN board number WC TOR PEREZ Self - patient is the insured 8 [place] [address] [place] [id number] TOR PEREZ Self - patient is the insured Medical (General) History Medical History History ICD Code work related back injury seasonal allergies low blood surgar pneumonia htn Surgical History Surgery Date(Month/Year) tonsilectomy ovarian cyst removal fusion with hardware 1998 closure spinal fluid leak fusion with bone graft legs
--- OUTSIDE RECORDS SUMMARY | 2025-03-03 19:14 | XMS_ITS | Clinical Summary ---
Author Organization [facility] Address [address] [place] [phone] Phone Care Team Providers Care Pipeline Construction Inspector Name Role Phone Unknown, Unknown Primary Care Provider Howie Watson MD Unavailable [phone] Allergies Active Allergy Reactions Criticality Noted Date Comments Codeine Itching,Rash Low 12/09/2019 Morphine 12/09/2019 Unable to urinate per pt Sulfa (Sulfonamide Antibiotics) Itching,Rash Low 12/09/2019 Medications acetaminophen (TYLENOL) 500 MG tablet Take 500 mg by mouth as needed. Active meloxicam (MOBIC) 15 MG tablet Take 15 mg by mouth daily. 05/18/2020 Active loratadine (CLARITIN) 10 mg tablet Take 10 mg by mouth daily. Active Social History Tobacco Use Types Packs/Day Years Used Date Smoking Tobacco: Every Day Cigarettes Smokeless Tobacco: Never Comments:nicarrete patches, gum Education Answer Date Recorded Are you interested in more education? Not on ileana e 07/11/2022 Are you concerned about learning? Not on file 07/11/2022 No 07/11/2022 No 07/11/2022 Digital Access Answer Date Recorded No 08/12/2022 No 08/12/2022 No 08/12/2022 Reliable internet access at home? Not on file 08/12/2022 Device with a working camera? Not on file Comments Unknown Sex and Gender Information Value Date Recorded Sex Assigned at Not on file Legal Sex Female 7:35 PM EST Gender Identity Not on file Sexual Orientation Not on file Last Filed Vital Signs Vital Sign Reading Time Taken Comments Blood Pressure 137/65 05/31/2020 1:17 PM EDT Pulse 85 05/31/2020 1:17 PM EDT Temperature 37.6 C (99.7 F) 05/31/2020 1:17 PM EDT Respiratory Rate - - Oxygen Saturation 99% 05/31/2020 1:17 PM EDT Inhaled Oxygen Concentration - - Weight - - Height - - Body Mass Index - - Plan of Treatment Health Maintenance Due Date Last Done Comments Adult Td,Tdap Booster 1959 LIPID PANEL 1959 DEPRESSION SCREENING 1971 SMOKING Hx and SMOKELESS TOB ACCO SCREENING 02/12/1972 HEPATITIS C SCREENING 1977 MAMMOGRAM 1999 COLOGUARD 02/12/2004 COLONOSCOPY 02/12/2004 COLORECTAL CANCER SCREENING 02/12/2004 FIT TEST 02/12/2004 FOBT 02/12/2004 SIGMOIDOSCOPY 02/12/2004 VIRTUAL COLONOSCOPY 02/12/2004 ZOSTER VACCINES (1 of 2) 2009 PNEUMOCOCCAL VACCINES (50+ y ears) (2 of 2 - PCV) 12/30/2020 12/31/2019 OSTEOPOROSIS SCREENING INITI AL (ONE-TIME) 02/12/2024 INFLUENZA VACCINE (#1) 2024 12/31/2019 COVID-19 VACCINE (1 - 2024-2 6 season) 2024 RSV VACCINE (1 - 1-dose 75+ series) 2034 HEPATITIS A VACCINES Aged Out No long er eligible based on patient's age to complete this topic HIB VACCINES Aged Out No longer eligi ble based on patient's age to complete this topic MENINGOCOCCAL VACCINES (ACWY) Aged Out No longer eligible based on patient's age to complete this topic MENINGOCOCCAL VACCINES (B) Aged Out N o longer eligible based on patient's age to complete this topic Medical Devices Not on file Insurance MEDICARE PART A & B MEDICARE PART A & B MEDICARE PART A & B MEDICARE PART A & B MEDICARE PART A & B MEDICARE PART A & B MEDICARE PART A & B MEDICARE PART A & B MEDICARE PART A & B WORKERS COMPENSATION Care Teams Pipeline Construction Inspector Relationship Specialty Start Date End Date Unknown, Unknown, MD PCP - General 06/15/18 Howie Guerrero MD [address] [place] [phone] [email or web address] Physical [facility] 07/13/18 Additional Source Comments The information contained in this document represents components of the legal health record. It is not the complete legal health record.[facility]
--- OUTSIDE RECORDS SUMMARY | 2025-03-03 19:14 | XMS_ITS ---
Author Name [facility] Organization Unknown Care Team Organization Name Specialty Phone Email Start Date End [address] [facility] Sarah [facility] 01/22/2022 11/03/2023
--- OUTSIDE RECORDS SUMMARY | 2025-03-03 19:14 | XMS_ITS | Encounter Summary ---
Author Organization [facility] Address [address] [place] [address] Care Team Providers Care Source Inspector Name Role Phone James Negrete MD Primary Care Provider [phone] Encounter Details Date Type Department Care Team ([facility] st Contact Info) Description 07/26/2024 Nurse Triage Adult Medicine [address] [phone] James Negrete MD [address] [place] [address] Social History Tobacco Use Types Packs/Day Years Used Date Smoking Tobacco: Some Days Smokeless Tobacco: Never Alcohol Use Standard Drinks/Week Comments No 0 (1 standard drink = 0.6 oz pur e alcohol) Comments Unknown Sex and Gender Information Value Date Recorded Sex Assigned at Not on file Legal Sex Female 2:36 AM EST Gender Identity Not on file Sexual Orientation Not on file documented as of this encounter Ordered Prescriptions Prescription Sig Dispense Quantity Refills Last Filled Start Date End Date predniSONE (DELTASONE) 20 mg tablet Take 1 tablet (20 mg total) by mouth 1 (one) time each day. 5 each 07/26/2024 07/28/2024 documented in this encounter Progress Notes * Adri Calzada RN - 07/27/2024 8:55 AM EDT Called the office of Dr. Santos , requested imaging report and last note be faxed to [phone] * James Negrete MD - 07/26/2024 8:59 PM EDT Please get the last office note, imaging results from Dr. Santos office. * James Negrete MD - 07/26/2024 8:57 PM EDT Please inform the patient that I sent a prescription for prednisone 20 mg daily for 5 days. She is already on Claritin, that will help her for allergies. * Nilda Cardona RN - 07/26/2024 5:02 PM EDT Pt was seen in the office on 07/09/24; PLAN: Recently she had soft mechanical fall at home, multiple minor bruises/abrasions/scabs present. She is not interested to attend physical therapy. She follows with link cutter Dr. Santos. I will get the medical records from Dr. Santos. 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 Patient requested me to do a medical necessity letter not to disconnect electricity supply. She is not on durable medical equipment. She reported that she is using TENS, hot and cold pack therapy forchronic backache and she wants good lighting to prevent mechanical falls, hence she wants medical necessity letter. She has been following up with Dr. Santos for chronic backache, it is more meaningful for her to talk with the specialist who is taking care of her backache. She is stating that she came here today exclusively for this letter. I told her that she needs to establish her care with me first and I have to review the previous medical records, before I can issue a letter. I told her to submit the form at the assistant front desk manager, I will review the form once I get the medical records from Dr. Santos office. She also has some financial issues, I will refer her to our manager of case. She is requesting a prescription for Prednisone. documented in this encounter Plan of Treatment Not on file documented as of this encounter Visit Diagnoses Not on filedocumented in this encounter Care Teams Source Inspector Relationship Specialty Start Date End Date James Negrete MD [address] [place] [address] PCP - General Internal Medicine 05/25/21 documented as of this encounter
== END 2025-03-03 15:47 | disposition home or self-care (01) ==
PROVIDERS: PCP Internal Medicine; Visit Provider Physical Medicine & Rehabilitation
DX: M96.1 Postlaminectomy syndrome, not elsewhere classified (principal); M62.838 Other muscle spasm; G89.4 Chronic pain syndrome; M53.3 Sacrococcygeal disorders, not elsewhere classified
CPT/HCPCS: 99214; G2211

== ENCOUNTER → 2025-03-03 15:16 | Outpatient (BNVA) | payer MEDICARE, MEDICAID, SELFPAY | PROVIDERS: PCP Internal Medicine; Visit Provider Physical Medicine & Rehabilitation | DX: G89.4 Chronic pain syndrome (principal); M96.1 Postlaminectomy syndrome, not elsewhere classified; M62.838 Other muscle spasm; M53.3 Sacrococcygeal disorders, not elsewhere classified | CPT/HCPCS: 99212 ==